=== PATIENT | male | born 1995 | race Caucasian/White ===

== ENCOUNTER 2017-10-12 05:32 | Emergency (ER) | payer OTHER ==
[~2017-10-12] VITALS: Ht 188 cm; Wt 99.8 kg
--- NOTE | 2017-10-12 05:59 | ED UPPER/LOWER EXTREMITY COMPL ---
History of Present Illness General Chief Complaint: Foot or Ankle Injury Stated Complaint: L ANKLE PAIN PER PT Source: patient Exam Limitations: no limitations Vital Signs & Intake/Output Vital Signs & Intake/Output Vital Signs Date Time Temp Pulse Resp B/P B/P Pulse O2 O2 Flow FiO2 Mean Ox Delivery Rate 10/12 0648 76 18 126/64 97 Room Air 10/12 0549 98.8 74 20 139/79 98 Room Air Allergies Coded Allergies: NO KNOWN ALLERGIES (10/12/17) Triage Note: PT COMING IN FROM HOME C/O LEFT ANKLE PAIN. PT STATES HE WAS RUNNING LAST NIGHT AT 1999 AND HE "ROLLED" HIS ANKLE. PT STATES THAT HE HEARD A "CRUNCH" AND THEN HE STARTED TO LIMP. PT DENIES FALLING. PT STATES THAT HE TRIED TO "WALK IT OFF" BUT THE PAIN GOT PROGRESSIVELY WORSE. PT DENIES ANY OTHER COMPLAINTS AT THIS TIME. SWELLING PRESENT TO LEFT ANKLE. Triage Nurses Notes Reviewed? yes Onset: Gradual Duration: day(s): Timing: recent history Severity: mild, moderate Pain/Injury Location: Left: Ankle. Method of Injury: "I rolled my ankle" Modifying Factors: Improves With: rest. Worsens With: movement. Associated Symptoms: swelling HPI: 22 yo gentleman presents with pain in his left ankle. "I rolled it last night... just was running and I rolled it." He notes swelling and pain, worse with ambulating. He notes no other injury and is otherwise well. Past History Travel History Traveled to [place] past 21 day No Medical History Any Pertinent Medical History? see below for history Surgical History Surgical History: none Psychosocial History What is your primary language Upper Sorbian Tobacco Use: Never used Family History Hx Contributory? No Review of Systems Review of Systems Constitutional: Reports: no symptoms. EENTM: Reports: no symptoms. Respiratory: Reports: no symptoms. Cardiovascular: Reports: no symptoms. Gastrointestinal/Abdominal: Reports: no symptoms. Genitourinary: Reports: no symptoms. Musculoskeletal: Reports: no symptoms. Skin: Reports: no symptoms. Neurological/Psychological: Reports: no symptoms. Hematologic/Endocrine: Reports: no symptoms. Immunological: Reports: no symptoms. All Other Systems: Reviewed and Negative Physical Exam Physical Exam General Appearance: well developed/nourished, mild distress Head: atraumatic Ears, Nose, Throat: normal ENT inspection Neck: normal inspection Cardiovascular/Respiratory: no respiratory distress Foot Left: swelling, swelling in lateral aspect of ankle, tenderness at lateral and medial malleolus, pain elicied iwth inversion of left ankle. 2+distal pulses , no deformity, light touch intact. Progress Differential Diagnosis: fracture, sprain, tendon injury Plan of Care: Orders Procedure Date/time Status Durable Medical Equipment 10/12 634 Active Diagnostic Imaging: Viewed by Me: Radiology Read. Discussed w/RAD: Radiology Read. Radiology Impression: PATIENT: SAMMY BUTLER PRESENT AGE: 22 PATIENT ACCOUNT NO: [id number] : 93 LOCATION: [facility] ORDERING PHYSICIAN: Edd Anglin MD SERVICE DATE: 10/12/17 EXAM TYPE: RAD - XRY-ANKLE 3 OR MORE VIEWS L EXAMINATION: LEFT ANKLE 3 VIEWS CLINICAL INFORMATION: Left ankle pain following trauma. COMPARISON: None. TECHNIQUE: AP, lateral, oblique views of the left ankle were obtained. FINDINGS: There are no fractures or dislocations. There is soft tissue swelling overlying the lateral malleolus. No ankle joint effusion is identified. IMPRESSION: Soft tissue swelling without fracture or joint effusion. 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 <Electronically signed in Other Vendor System> SIGNED BY: Braden Alcantar MD 10/12/17636 Departure Departure Disposition: HOME OR SELF CARE Condition: Stable Clinical Impression Primary Impression: Left ankle sprain Referrals: Unknown (PCP/Family) Departure Forms: Customer Survey General Discharge Information Comments 10/12/17, 6:49AM... pt without fx on xray... delia wrap to left ankle by nursing team... discussed at length. pt referred to ortho if not feeling better in 1-2 weeks.
--- NOTE | 2017-10-12 06:37 | RADIOLOGY REPORT ---
EXAMINATION: LEFT ANKLE 3 VIEWS CLINICAL INFORMATION: Left ankle pain following trauma. COMPARISON: None. TECHNIQUE: AP, lateral, oblique views of the left ankle were obtained. FINDINGS: There are no fractures or dislocations. There is soft tissue swelling overlying the lateral malleolus. No ankle joint effusion is identified. IMPRESSION: Soft tissue swelling without fracture or joint effusion.
[2017-10-12 06:48] VITALS: BP 126/64
== END 2017-10-12 06:53 ==
LOC: ERH 05:32
DX: S93.402A Sprain of unspecified ligament of left ankle, initial encounter (principal); X58.XXXA Exposure to other specified factors, initial encounter; Y93.02 Activity, running; Y92.009 Unspecified place in unspecified non-institutional (private) residence as the place of occurrence of the external cause
CPT/HCPCS: 73610-LT